=== PATIENT | male | born 1995 | race Caucasian/White ===

== ENCOUNTER 2019-05-02 11:40 | Emergency (ER) | payer MEDICAID ==
[~2019-05-02 11:40] MED LIST: ALBU17AE26
--- NOTE | 2019-05-02 12:15 | NUR ---
LWBS AT THIS TIME PRIOR TO TRIAGE
== END 2019-05-02 12:15 | disposition left against medical advice (07) ==
LOC: SED 11:40
DX: M25.569 Pain in unspecified knee (principal); Z53.21 Procedure and treatment not carried out due to patient leaving prior to being seen by health care provider

== ENCOUNTER 2019-09-06 19:31 | Emergency (ER) | payer MEDICAID ==
[~2019-09-06] VITALS: Ht 167.6 cm; Wt 63.5 kg
[2019-09-06 19:36] VITALS: BP_SYST 161
--- NOTE | 2019-09-06 19:39 | NUR ---
Patient to ER bed 02 to gown for evaluation. Side rails up.
--- NOTE | 2019-09-06 19:50 | NUR ---
Dr. Braun bedside for pt eval
--- NOTE | 2019-09-06 19:55 | NUR ---
Pt BIB family to ED C/O pain to the R Hand / Wrist s/p mech fall after falling off skateboard. No KO, Hx of IBS and GERD. No other complaints noted VSS no s/s of acute distress Resting on [facility] [id number] up
--- NOTE | 2019-09-06 19:58 | NUR ---
Portable X Ray bedside, well tolerated
[2019-09-06] MEDS ORDERED: DIPHENHYDRAMINE INJ 50 MG/ML VIAL IM ONE (20:00)
[2019-09-06] MEDS ORDERED: MORPHINE SULFATE 10 MG/ML VIAL IM ONE (20:00)
[2019-09-06] MEDS ORDERED: DIPHENHYDRAMINE INJ 50 MG/ML VIAL ONE (20:08)
[2019-09-06] MEDS ORDERED: MORPHINE SULFATE 10 MG/ML VIAL ONE (20:09)
[2019-09-06] MEDS ORDERED: ONDANSETRON 4 MG ODT TAB PO ONE (21:00)
[2019-09-06 21:10] VITALS: BP_SYST 161
--- NOTE | 2019-09-06 21:10 | NUR ---
Patient given written and verbal discharge instructions and verbalizes understanding. ER MD discussed with patient the results and treatment provided. Patient in stable condition. ID arm band removed. Rx of Naprosyn and Tylenol with Codeine given. Patient educated on pain management and to follow up with PMD. Pain Scale 0/10 Opportunity for questions provided and answered. Medication side effect fact sheet provided.
== END 2019-09-06 21:10 | disposition home or self-care (01) ==
LOC: SED 19:31
DX: S63.681A Other sprain of right thumb, initial encounter (principal); J45.909 Unspecified asthma, uncomplicated; F12.90 Cannabis use, unspecified, uncomplicated; F17.200 Nicotine dependence, unspecified, uncomplicated; V00.131A Fall from skateboard, initial encounter; Y93.89 Activity, other specified; Y92.89 Other specified places as the place of occurrence of the external cause; Y99.8 Other external cause status
CPT/HCPCS: 29125; 73130; 96372; 99284; J1200; J2270; Q0162